=== PATIENT | female | born 1980 | race African-American/Black ===

== ENCOUNTER 2022-08-19 01:02 | Emergency (ER) | payer BC ==
[2022-08-19 01:22] VITALS: BP 140/80; PULSE 100; RESP 20; TEMP 99.2; BMI 50.0
[2022-08-19] MEDS ORDERED: diphenhydrAMINE HCL 50 MG CAPSULE PO ONE (02:28)
[2022-08-19] MEDS ORDERED: DEXAMETHASONE 4 MG TABLET (FP) PO ONE (02:29)
[2022-08-19] MEDS ORDERED: FAMOTIDINE 20 MG TABLET PO ONE (02:29)
[2022-08-19] MEDS ORDERED: diphenhydrAMINE HCL 25 MG CAPSULE (FP) PO ONE (02:32)
[2022-08-19] MEDS ORDERED: FAMOTIDINE 20 MG TABLET ONE (02:33)
[2022-08-19] MEDS ORDERED: DEXAMETHASONE SOD PHOSPHATE 10 MG/1 ML VIAL ONE (02:33)
== END 2022-08-19 04:09 | disposition home or self-care (01) ==
LOC: JER 01:02
DX: T78.40XA Allergy, unspecified, initial encounter (principal)
CPT/HCPCS: 99283-25